=== PATIENT | female | born 1980 | race Caucasian/White ===

== ENCOUNTER 2016-05-18 07:44 | Day surgery (SDC) | payer OTHER ==
[~2016-05-18] VITALS: Ht 154.9 cm; Wt 56.7 kg
[~2016-05-18 07:44] MED LIST: ADVIL,NUPRIN,M200 MG PO; CLARITIN10 MG PO; ENDOCET 5-3251 EACH PO; FIBER GUMMIES2.5 GM PO; FLONASE16 G1 BOTH NARES; IBUPROFEN800 MG PO; MOTRIN400 MG PO; Motrin PO; PERCOCET 5/31 TABLET PO; PRENATAL TABLE1 EAC3 PO; PROAIR HFA8.5 GM IH; Percocet 5/325,Endoc PO
[2016-05-18 08:36] VITALS: BP 119/70
[2016-05-18 08:58] LABS: EOSINOPHIL (%) 2.8 % (0-5); EOSINOPHIL COUNT 0.2 K/uL (0-0.3); HEMATOCRIT 35.6 % (36.0-46.0); IMMATURE GRANULOCYTE (%) 0.2 % (0.0-0.7); IMMATURE GRANULOCYTE COUNT 0.2 K/uL; LYMPHOCYTE COUNT 1.9 K/uL (1.0-2.8); MCH 28.6 PG (29.0-34.0); MCV 84.2 FL (83-99); MEAN PLAT.VOLUME 10.1 uM^3 (9.5-12.4); MONOCYTE (%) 5.7 % (3-12); MONOCYTE COUNT 0.5 K/uL (0-0.8); NEUTROPHIL (%) 68.2 % (45-76); NEUTROPHIL COUNT 5.6 K/uL (1.8-6.4); PLATELET COUNT 289 K/uL (156-360); RBC DIS.WIDTH-CV 11.9 % (11.8-14.6); RBC DIS.WIDTH-SD 35.6 % (39-53); RED BLOOD COUNT 4.23 M/uL (3.80-5.20); WHITE BLOOD COUNT 8.2 K/uL (4.1-10.2)
[2016-05-18 09:14] VITALS: BP 119/70
[2016-05-18 10:55] VITALS: BP 134/62
[2016-05-18 12:03] LABS: INTERNAL CONTROL VALID? YES
== END 2016-05-18 11:33 | disposition home or self-care (01) ==
LOC: SDC 07:44
PROVIDERS: Obstetrics & Gynecology
PROC: 10D17ZZ Extraction of Products of Conception, Retained, Via Natural or Artificial Opening (ICD-10-PCS; principal; 2016-05-18)
DX: O03.1 Delayed or excessive hemorrhage following incomplete spontaneous abortion (principal); R10.2 Pelvic and perineal pain; J45.909 Unspecified asthma, uncomplicated; Z87.440 Personal history of urinary (tract) infections; Z91.09 Other allergy status, other than to drugs and biological substances; Z80.41 Family history of malignant neoplasm of ovary; Z88.2 Allergy status to sulfonamides; Z88.5 Allergy status to narcotic agent; Z88.8 Allergy status to other drugs, medicaments and biological substances; Z83.49 Family history of other endocrine, nutritional and metabolic diseases; Z81.1 Family history of alcohol abuse and dependence; Z82.49 Family history of ischemic heart disease and other diseases of the circulatory system
CPT/HCPCS: 84703; 85025; 86850; 86900; 86901; 88305; J1100; J2405; J3010; J7120

== ENCOUNTER 2016-10-22 18:36 | Outpatient (CLI) | payer OTHER ==
[~2016-10-22] VITALS: Ht 157.5 cm; Wt 60.8 kg
[2016-10-22 20:10] LABS: BASOPHIL COUNT 0.1 K/uL (0-0.1); EOSINOPHIL COUNT 0.2 K/uL (0-0.3); HEMATOCRIT 35.6 % (36.0-46.0); IMMATURE GRANULOCYTE (%) 0.5 % (0.0-0.7); IMMATURE GRANULOCYTE COUNT 0.1 K/uL; INSTRUMENT ABS NEUTROPHIL CT 8.6 K/uL; LYMPHOCYTE COUNT 2.3 K/uL (1.0-2.8); MCH 30.4 PG (29.0-34.0); MCHC 35.1 G/DL (30.0-36.0); MCV 86.6 FL (83-99); MEAN PLAT.VOLUME 9.8 uM^3 (9.5-12.4); MONOCYTE (%) 5.1 % (3-12); MONOCYTE COUNT 0.6 K/uL (0-0.8); NEUTROPHIL (%) 72.8 % (45-76); NEUTROPHIL COUNT 8.6 K/uL (1.8-6.4); PLATELET COUNT 280 K/uL (156-360); RBC DIS.WIDTH-CV 13.2 % (11.8-14.6); RBC DIS.WIDTH-SD 41.2 % (39-53); RED BLOOD COUNT 4.11 M/uL (3.80-5.20); WHITE BLOOD COUNT 11.9 K/uL (4.1-10.2)
[2016-10-22 20:22] LABS: ANION GAP 10 MEQ/L (2-14); CHLORIDE 106 MEQ/L (99-109); POTASSIUM 3.6 MEQ/L (3.7-5.4); SAMPLE HEMOLYSIS CHECK 0; SAMPLE ICTERIC CHECK 0; SAMPLE LIPEMIA CHECK 0; SODIUM 138 MEQ/L (136-147); TOTAL BILIRUBIN 0.3 MG/DL (0.0-1.0)
[2016-10-22 20:27] LABS: ALKALINE PHOSPHATASE 38 IU/L (3-129); GFR ESTIMATE (CALCULATED) > 59 mL/min/; GLUCOSE 99 mg/dL (70-99); UREA NITROGEN (BUN) 9 mg/dL (9-23)
[2016-10-22 21:12] VITALS: BP 107/65
[2016-10-22 22:00] VITALS: BP 109/68
[2016-10-23] VITALS (18 sets, daily range): BP systolic 94–130; BP diastolic 50–67
[2016-10-23 15:46] LABS: EOSINOPHIL (%) 0.8 % (0-5); EOSINOPHIL COUNT 0.1 K/uL (0-0.3); HEMATOCRIT 29.3 % (36.0-46.0); IMMATURE GRANULOCYTE (%) 0.4 % (0.0-0.7); IMMATURE GRANULOCYTE COUNT 0.1 K/uL; INSTRUMENT ABS NEUTROPHIL CT 11.1 K/uL; LYMPHOCYTE COUNT 2.5 K/uL (1.0-2.8); MCH 30.7 PG (29.0-34.0); MCHC 35.2 G/DL (30.0-36.0); MCV 87.5 FL (83-99); MEAN PLAT.VOLUME 9.7 uM^3 (9.5-12.4); MONOCYTE (%) 7.4 % (3-12); MONOCYTE COUNT 1.1 K/uL (0-0.8); NEUTROPHIL (%) 74.4 % (45-76); NEUTROPHIL COUNT 11.1 K/uL (1.8-6.4); PLATELET COUNT 207 K/uL (156-360); RBC DIS.WIDTH-CV 13.2 % (11.8-14.6); RBC DIS.WIDTH-SD 41.9 % (39-53); RED BLOOD COUNT 3.35 M/uL (3.80-5.20); WHITE BLOOD COUNT 14.9 K/uL (4.1-10.2)
[2016-10-23] MEDS ORDERED: PRENATAL TABLE1 EAC3 PO (16:22)
[2016-10-23] MEDS ORDERED: IBUPROFEN800 MG PO (17:34)
[2016-10-26 10:12] LABS: RUBELLA VIRUS IgM (ACUTE) ABY+ <20.00 AU/mL (<20.00)
[2016-10-26 14:50] LABS: TOXOPLASMA IgM (ACUTE ONLY)+ <8.00 AU/mL (<8.00)
== END 2016-10-23 20:25 | disposition home or self-care (01) ==
LOC: LDRP-OP 18:36 → 2WEST 18:38
PROVIDERS: Advanced Practice Midwife; Obstetrics & Gynecology Gynecology
PROC: 3E0P7GC Introduction of Other Therapeutic Substance into Female Reproductive, Via Natural or Artificial Opening (ICD-10-PCS; principal; 2016-10-23)
PROC: 10D17ZZ Extraction of Products of Conception, Retained, Via Natural or Artificial Opening (ICD-10-PCS; principal; 2016-10-23)
PROC: 3E0R3CZ (ICD-10-PCS; 2016-10-23)
PROC: 00HU33Z Insertion of Infusion Device into Spinal Canal, Percutaneous Approach (ICD-10-PCS; 2016-10-23)
DX: O02.1 Missed abortion (principal)
CPT/HCPCS: 76998; 80053; 84443; 85025; 85460; 86645 90; 86762 90; 86778 90; 86900; 86901; C1755; G0378; J0595; J2250; J3010; J7120